=== PATIENT | male | born 1950 | race Caucasian/White ===

== ENCOUNTER 2021-09-16 08:16 | Day surgery (SDC) | payer OTHER | END 2021-09-16 15:05 | disposition home or self-care (01) | LOC: AMB-ENDOS 08:16 | PROVIDERS: ATTEND Colon & Rectal Surgery | DX: D12.7 Benign neoplasm of rectosigmoid junction (principal); D12.0 Benign neoplasm of cecum; D12.2 Benign neoplasm of ascending colon; Z88.0 Allergy status to penicillin; K64.4 Residual hemorrhoidal skin tags ==